=== PATIENT | male | born 1950 | race Caucasian/White ===

== ENCOUNTER 2021-12-08 10:46 | Inpatient (IN) ==
[2021-12-08 11:25] LABS: Basophils # 0.1 K/mcL (0.0-0.2); Basophils % 1.2 %; Eosinophils # 0.1 K/mcL (0.0-0.6); Eosinophils % 1.6 %; Hematocrit 46.1 % (37.5-50.1); Hemoglobin 15.5 g/dL (12.9-16.9); Immature Granulocytes % 0.3 % (0-4); Lymphocytes # 2.3 K/mcL (0.6-4.6); Lymphocytes % 33.8 %; Mean Corpuscular HGB Conc 33.6 g/dL (31.6-35.5); Mean Corpuscular Hemoglobin 31.5 pg (28.0-33.3); Mean Corpuscular Volume 93.7 fL (83.0-100.0); Mean Platelet Volume 10.3 fL (9.4-12.4); Monocytes # 0.7 K/mcL (0.0-1.3); Monocytes % 10.2 %; Neutrophils # 3.7 K/mcL (1.6-8.9); Platelet Count 167 K/mcL (140-400); Red Blood Count 4.92 M/mcL (4.19-5.50); Red Cell Distribution Width 12.3 % (11.5-14.5); Segmented Neutrophils % 52.9 %; White Blood Count 6.9 K/mcL (4.3-11.1)
[2021-12-08 11:50] LABS: BUN/Creatinine Ratio 13 (6-26); Blood Urea Nitrogen 15 mg/dL (8-23); Calcium 9.7 mg/dL (8.6-10.3); Carbon Dioxide 25 mEq/L (23-29); Chloride 104 mEq/L (98-107); Glucose 93 mg/dL (70-105); Osmolality,Calculated 287 (280-300); Potassium 4.6 mEq/L (3.5-5.1); Sodium 138 mEq/L (136-145); Troponin I < 0.03 ng/mL (< 0.04); eGFR For African Americans > 60 (> 60); eGFR For Non-African Americans > 60 (> 60)
[2021-12-08] MEDS ORDERED: Naloxone 0.4 MG/ML INJ IVP PRN (13:25)
[2021-12-08] MEDS ORDERED: Ondansetron 4 MG/2 ML VIAL IVP PRN (13:25)
[2021-12-08] MEDS ORDERED: Acetaminophen 325 MG TABLET PO PRN (13:25)
[2021-12-08] MEDS ORDERED: Perflutren Lipid Microsphere 1.3 ML in 0.9 % Sodium Chloride 8.7 ML IVP PRN (13:32)
[2021-12-08] MEDS: amLODIPine 5 MG TABLET PO SCH (16:55)
[2021-12-09 01:34] LABS: Basophils # 0.1 K/mcL (0.0-0.2); Basophils % 1.1 %; Eosinophils # 0.2 K/mcL (0.0-0.6); Eosinophils % 3.3 %; Hematocrit 41.7 % (37.5-50.1); Hemoglobin 14.5 g/dL (12.9-16.9); Immature Granulocytes % 0.3 % (0-4); Lymphocytes # 2.8 K/mcL (0.6-4.6); Mean Corpuscular HGB Conc 34.8 g/dL (31.6-35.5); Mean Corpuscular Hemoglobin 31.9 pg (28.0-33.3); Mean Corpuscular Volume 91.6 fL (83.0-100.0); Mean Platelet Volume 10.2 fL (9.4-12.4); Monocytes # 0.7 K/mcL (0.0-1.3); Monocytes % 10.1 %; Neutrophils # 3.3 K/mcL (1.6-8.9); Platelet Count 184 K/mcL (140-400); Red Blood Count 4.55 M/mcL (4.19-5.50); Red Cell Distribution Width 12.3 % (11.5-14.5); Segmented Neutrophils % 46.2 %; White Blood Count 7.2 K/mcL (4.3-11.1)
[2021-12-09 01:57] LABS: BUN/Creatinine Ratio 19 (6-26); Blood Urea Nitrogen 19 mg/dL (8-23); Calcium 9.2 mg/dL (8.6-10.3); Carbon Dioxide 25 mEq/L (23-29); Chloride 105 mEq/L (98-107); Glucose 98 mg/dL (70-105); Magnesium 2.3 mg/dL (1.6-2.6); Osmolality,Calculated 288 (280-300); Potassium 4.2 mEq/L (3.5-5.1); Sodium 138 mEq/L (136-145); Troponin I < 0.03 ng/mL (< 0.04); eGFR For African Americans > 60 (> 60); eGFR For Non-African Americans > 60 (> 60)
[2021-12-09] MEDS: *HR* Enoxaparin 40 MG/0.4 ML SYRINGE SQ SCH (07:14)
[2021-12-09 08:32] LABS: Chol/HDL Ratio 3.3 (0-4.9); Cholesterol 144 mg/dL (< 200); HDL Cholesterol 43 mg/dL (40-59); LDL Cholesterol,Calculated 59 mg/dL (< 100); Triglycerides 209 mg/dL (< 150)
[2021-12-09] MEDS: Aspirin Enteric Coated 81 MG Tablet PO SCH (09:04)
[2021-12-09] MEDS: Cholecalciferol (D-3) 1,000 UNIT (25MCG) TABLET PO SCH (09:05)
[2021-12-09] MEDS: amLODIPine 5 MG TABLET PO SCH (09:05)
[2021-12-09 11:27] LABS: Estimated Average Glucose 117 mg/dl; Hemoglobin A1C 5.7 %
[2021-12-09] MEDS ORDERED: *HR* Heparin 10,000 UNIT/10 ML VIAL ONE (16:51)
[2021-12-09] MEDS ORDERED: Heparin 1,000 UNITS/500 mL 500 ML ONE (16:51)
[2021-12-09] MEDS ORDERED: ISOVUE-370 200 ML INFUS..BTL ONE (16:51)
[2021-12-09] MEDS ORDERED: Nitroglycerin 1,000 MCG/5 ML VIAL IV ONE (16:52)
[2021-12-09] MEDS ORDERED: 0.9 % Sodium Chloride 2,000 ML ONE (16:52)
[2021-12-09] MEDS ORDERED: *HR* FentaNYL (PF) 100 MCG/2 ML VIAL ONE (17:11)
[2021-12-09] MEDS ORDERED: *HR* Midazolam HCl 2 MG/2 ML VIAL ONE (17:11)
[2021-12-10 01:36] LABS: Hematocrit 42.2 % (37.5-50.1); Hemoglobin 14.1 g/dL (12.9-16.9); Mean Corpuscular HGB Conc 33.4 g/dL (31.6-35.5); Mean Corpuscular Hemoglobin 30.8 pg (28.0-33.3); Mean Corpuscular Volume 92.1 fL (83.0-100.0); Mean Platelet Volume 10.4 fL (9.4-12.4); Platelet Count 174 K/mcL (140-400); Red Blood Count 4.58 M/mcL (4.19-5.50); Red Cell Distribution Width 12.4 % (11.5-14.5); White Blood Count 7.7 K/mcL (4.3-11.1)
[2021-12-10 01:57] LABS: BUN/Creatinine Ratio 18 (6-26); Blood Urea Nitrogen 21 mg/dL (8-23); Calcium 9.6 mg/dL (8.6-10.3); Carbon Dioxide 28 mEq/L (23-29); Chloride 103 mEq/L (98-107); Glucose 90 mg/dL (70-105); Magnesium 2.3 mg/dL (1.6-2.6); Osmolality,Calculated 291 (280-300); Potassium 4.2 mEq/L (3.5-5.1); Sodium 139 mEq/L (136-145); eGFR For African Americans > 60 (> 60); eGFR For Non-African Americans > 60 (> 60)
[2021-12-10] MEDS: *HR* Enoxaparin 40 MG/0.4 ML SYRINGE SQ SCH (06:13)
[2021-12-10] MEDS: amLODIPine 5 MG TABLET PO SCH (08:35)
[2021-12-10] MEDS: Aspirin Enteric Coated 81 MG Tablet PO SCH (08:35)
[2021-12-10] MEDS: Cholecalciferol (D-3) 1,000 UNIT (25MCG) TABLET PO SCH (08:35)
[2021-12-10] MEDS: Metoprolol XL (24 HR) Succ 25 MG TAB.ER.24H PO SCH (08:45)
[2021-12-10 14:22] LABS: Basophils # 0.1 K/mcL (0.0-0.2); Basophils % 0.9 %; Eosinophils # 0.1 K/mcL (0.0-0.6); Eosinophils % 1.7 %; Hematocrit 47.5 % (37.5-50.1); Hemoglobin 16.3 g/dL (12.9-16.9); Immature Granulocytes % 0.3 % (0-4); Lymphocytes # 2.9 K/mcL (0.6-4.6); Lymphocytes % 37.8 %; Mean Corpuscular HGB Conc 34.3 g/dL (31.6-35.5); Mean Corpuscular Hemoglobin 31.8 pg (28.0-33.3); Mean Corpuscular Volume 92.6 fL (83.0-100.0); Mean Platelet Volume 10.2 fL (9.4-12.4); Monocytes # 0.6 K/mcL (0.0-1.3); Monocytes % 7.9 %; Platelet Count 199 K/mcL (140-400); Red Blood Count 5.13 M/mcL (4.19-5.50); Red Cell Distribution Width 12.4 % (11.5-14.5); Segmented Neutrophils % 51.4 %; White Blood Count 7.7 K/mcL (4.3-11.1)
[2021-12-10 14:30] LABS: INR 1.1
[2021-12-10 14:32] LABS: Activated Partial Thrombo Time 33.7 Seconds (26.0-36.0)
[2021-12-10 14:40] LABS: BUN/Creatinine Ratio 16 (6-26); Blood Urea Nitrogen 20 mg/dL (8-23); Calcium 9.9 mg/dL (8.6-10.3); Carbon Dioxide 29 mEq/L (23-29); Chloride 101 mEq/L (98-107); Chol/HDL Ratio 3.8 (0-4.9); Cholesterol 158 mg/dL (< 200); Glucose 115 mg/dL (70-105); HDL Cholesterol 42 mg/dL (40-59); LDL Cholesterol,Calculated 38 mg/dL (< 100); Osmolality,Calculated 288 (280-300); Potassium 4.5 mEq/L (3.5-5.1); Sodium 137 mEq/L (136-145); Triglycerides 392 mg/dL (< 150); eGFR For African Americans > 60 (> 60); eGFR For Non-African Americans 56 (> 60)
[2021-12-10 14:56] LABS: Estimated Average Glucose 117 mg/dl; Hemoglobin A1C 5.7 %
[2021-12-11] MEDS: *HR* Enoxaparin 40 MG/0.4 ML SYRINGE SQ SCH (05:34)
[2021-12-11] MEDS: Aspirin Enteric Coated 81 MG Tablet PO SCH (08:32)
[2021-12-11] MEDS: amLODIPine 5 MG TABLET PO SCH (08:33)
[2021-12-11] MEDS: Metoprolol XL (24 HR) Succ 25 MG TAB.ER.24H PO SCH (08:33)
[2021-12-11] MEDS: Cholecalciferol (D-3) 1,000 UNIT (25MCG) TABLET PO SCH (08:33)
[2021-12-11] MEDS: Chlorhexidine Rinse 15 ML MOUTHWASH MM SCH (20:51)
[2021-12-12 03:25] LABS: INR 1.1; Mean Corpuscular HGB Conc 33.8 g/dL (31.6-35.5); Mean Corpuscular Hemoglobin 31.3 pg (28.0-33.3); Mean Corpuscular Volume 92.5 fL (83.0-100.0); Mean Platelet Volume 10.6 fL (9.4-12.4); Platelet Count 163 K/mcL (140-400); Prothrombin Time 12.2 Seconds (9.4-12.1); Red Blood Count 4.54 M/mcL (4.19-5.50); Red Cell Distribution Width 12.2 % (11.5-14.5); White Blood Count 8.2 K/mcL (4.3-11.1)
[2021-12-12 03:28] LABS: Activated Partial Thrombo Time 30.7 Seconds (26.0-36.0)
[2021-12-12 03:38] LABS: BUN/Creatinine Ratio 22 (6-26); Blood Urea Nitrogen 30 mg/dL (8-23); Calcium 9.3 mg/dL (8.6-10.3); Carbon Dioxide 26 mEq/L (23-29); Chloride 105 mEq/L (98-107); Glucose 95 mg/dL (70-105); Osmolality,Calculated 292 (280-300); Potassium 4.3 mEq/L (3.5-5.1); Sodium 138 mEq/L (136-145); eGFR For African Americans > 60 (> 60); eGFR For Non-African Americans 52 (> 60)
[2021-12-12 03:39] LABS: Hemoglobin 14.2 g/dL (12.9-16.9)
[2021-12-12] MEDS ORDERED: CeFAZolin Syr 2,000MG/20 ML 2,000 MG/20 ML SYRINGE IVPB ONE ×2 (05:00→11:57)
[2021-12-12] MEDS: Chlorhexidine Rinse 15 ML MOUTHWASH MM SCH ×3 (05:29→20:33)
[2021-12-12] MEDS ORDERED: DOBUTamine 1,000 MG/250 ML BAG ONE (05:51)
[2021-12-12] MEDS ORDERED: NiCARdipine 2.5 MG/10 ML Syringe IVPB ONE (05:51)
[2021-12-12] MEDS ORDERED: Papaverine 60 MG/2 ML VIAL IVP ONE (05:55)
[2021-12-12] MEDS ORDERED: *HR* FentaNYL (PF) 1,000 MCG/20 ML VIAL ONE (05:56)
[2021-12-12] MEDS ORDERED: *HR* Midazolam HCl 5 MG/5 ML VIAL IVP ONE (05:56)
[2021-12-12] MEDS ORDERED: Aspirin 81 MG TAB.CHEW PO ONE ×2 (06:00→16:00)
[2021-12-12] MEDS ORDERED: *HR* Norepinephrine 4 MG/4 ML VIAL IVC ONE (06:01)
[2021-12-12] MEDS ORDERED: *HR* Rocuronium Bromide 50 MG/5 ML VIAL ONE (06:01)
[2021-12-12] MEDS ORDERED: niCARdipine 20 MG/200 ML MLS IVC ONE (06:01)
[2021-12-12] MEDS ORDERED: *HR* Etomidate 20 MG/10 ML AMPUL IVP ONE (06:02)
[2021-12-12] MEDS ORDERED: Tranexamic Acid 1,000 MG/10 ML VIAL ONE (06:02)
[2021-12-12] MEDS ORDERED: Calcium Gluconate 1,000 MG/10 ML VIAL ONE (06:02)
[2021-12-12] MEDS ORDERED: Protamine Sulfate 250 MG/25 ML VIAL IVP ONE (06:04)
[2021-12-12] MEDS ORDERED: Heparin 15,000 UNIT in 0.9 % Sodium Chloride 500 ML IV ONE (07:00)
[2021-12-12] MEDS ORDERED: Norepinephrine 4 MG in 0.9 % Sodium Chloride 250 ML IVC PRN (07:00)
[2021-12-12] MEDS ORDERED: Buckersberg's Blood Cardioplegia PF ONE (07:00)
[2021-12-12] MEDS ORDERED: del Nido Cardioplegia Solution PF ONE ×2 (07:00)
[2021-12-12] MEDS ORDERED: *HR* Dextrose 50 % in Water (Syg) 50 ML SYRINGE IVP PRN (07:30)
[2021-12-12] MEDS ORDERED: Potassium Chloride 40 MEQ/200 ML BAG IVPB PRN (07:30)
[2021-12-12] MEDS ORDERED: Insulin Regular, Human 100 UNIT/ML IV PRN (07:30)
[2021-12-12] MEDS ORDERED: Calcium Gluconate 1gm/50mL 1 GM/50 ML BAG IVPB PRN (07:34)
[2021-12-12 09:14] LABS: ABG Base Excess -2 mEq/L (-2 to 3); ABG Chloride 106 mEq/L (98-107); ABG Glucose 94 mg/dL (60-95); ABG HCO3 23 mEq/L (21-27); ABG Ionized Calcium 1.19 mmol/L (1.15-1.35); ABG Oxygen Saturation 100 % (95-98); ABG PCO2 39 mmHg (35-45); ABG PH 7.38 pH Units (7.32-7.45); ABG PO2 412 mmHg (85-104); ABG TCO2 25 mEq/L (20-26)
[2021-12-12 09:36] LABS: ABG Base Excess -2 mEq/L (-2 to 3); ABG Chloride 106 mEq/L (98-107); ABG Glucose 120 mg/dL (60-95); ABG HCO3 23 mEq/L (21-27); ABG Ionized Calcium 1.17 mmol/L (1.15-1.35); ABG Oxygen Saturation 100 % (95-98); ABG PCO2 36 mmHg (35-45); ABG PO2 207 mmHg (85-104); ABG TCO2 24 mEq/L (20-26)
[2021-12-12 10:40] LABS: ABG Base Excess 2 mEq/L (-2 to 3); ABG Chloride 101 mEq/L (98-107); ABG Glucose 123 mg/dL (60-95); ABG HCO3 27 mEq/L (21-27); ABG Ionized Calcium 0.95 mmol/L (1.15-1.35); ABG Oxygen Saturation 100 % (95-98); ABG PCO2 40 mmHg (35-45); ABG PH 7.43 pH Units (7.32-7.45); ABG PO2 607 mmHg (85-104); ABG TCO2 28 mEq/L (20-26)
[2021-12-12 11:10] LABS: ABG Base Excess -1 mEq/L (-2 to 3); ABG Chloride 106 mEq/L (98-107); ABG Glucose 105 mg/dL (60-95); ABG HCO3 23 mEq/L (21-27); ABG Ionized Calcium 0.87 mmol/L (1.15-1.35); ABG Oxygen Saturation 100 % (95-98); ABG PCO2 36 mmHg (35-45); ABG PH 7.42 pH Units (7.32-7.45); ABG PO2 584 mmHg (85-104); ABG TCO2 24 mEq/L (20-26)
[2021-12-12] MEDS ORDERED: *HR* Phenylephrine 10 MG/ML VIAL IVC ONE (11:15)
[2021-12-12] MEDS ORDERED: *HR* Heparin 10,000 UNIT/10 ML VIAL IR ONE (11:15)
[2021-12-12] MEDS ORDERED: *HR* Magnesium Sulfate 2 GM/50 ML PIGGYBACK IVPB ONE (11:15)
[2021-12-12] MEDS ORDERED: Heparin 1,000 UNITS/500 mL IV.SOLN IR ONE (11:15)
[2021-12-12] MEDS ORDERED: Albumin Human 25% 25 GM/100 ML IV.SOLN IVPB ONE (11:15)
[2021-12-12] MEDS ORDERED: Lidocaine 2% Syringe 100 MG/5 ML IVP ONE (11:15)
[2021-12-12] MEDS ORDERED: Mannitol 25% vial 12.5 GM/50 ML VIAL IVPB ONE (11:15)
[2021-12-12] MEDS ORDERED: Tranexamic Acid 1,000 MG/100ML 1,000 MG/100 ML PIGGYBACK IVPB ONE (11:15)
[2021-12-12 11:55] LABS: ABG Base Excess -2 mEq/L (-2 to 3); ABG Chloride 105 mEq/L (98-107); ABG Glucose 100 mg/dL (60-95); ABG HCO3 23 mEq/L (21-27); ABG Oxygen Saturation 100 % (95-98); ABG PCO2 37 mmHg (35-45); ABG PO2 624 mmHg (85-104); ABG TCO2 24 mEq/L (20-26)
[2021-12-12] MEDS: amLODIPine 5 MG TABLET PO SCH (11:58)
[2021-12-12] MEDS: Cholecalciferol (D-3) 1,000 UNIT (25MCG) TABLET PO SCH (11:58)
[2021-12-12] MEDS: *HR* Enoxaparin 40 MG/0.4 ML SYRINGE SQ SCH (11:59)
[2021-12-12 13:58] LABS: ABG Base Excess -2 mEq/L (-2 to 3); ABG HCO3 23 mEq/L (21-27); ABG Oxygen Saturation 100 % (95-98); ABG PCO2 36 mmHg (35-45); ABG PH 7.41 pH Units (7.32-7.45); ABG PO2 200 mmHg (85-104); ABG TCO2 24 mEq/L (20-26); Blood Gas Modality ASSIST CONTROL; Blood Gas VT 450 cc
[2021-12-12 13:58] LABS: Basophils # 0.1 K/mcL (0.0-0.2); Basophils % 0.5 %; Eosinophils # 0.1 K/mcL (0.0-0.6); Eosinophils % 0.7 %; Hematocrit 30.1 % (37.5-50.1); Immature Granulocytes % 0.8 % (0-4); Lymphocytes % 20.2 %; Mean Corpuscular HGB Conc 34.9 g/dL (31.6-35.5); Mean Corpuscular Hemoglobin 31.8 pg (28.0-33.3); Mean Corpuscular Volume 91.2 fL (83.0-100.0); Mean Platelet Volume 10.1 fL (9.4-12.4); Monocytes # 1.3 K/mcL (0.0-1.3); Platelet Count 115 K/mcL (140-400); Red Cell Distribution Width 12.2 % (11.5-14.5); Segmented Neutrophils % 68.8 %
[2021-12-12] MEDS: Albumin Human 5% 12.5 GM/250 ML IV.SOLN IVPB PRN ×3 (14:00→17:36)
[2021-12-12 14:06] LABS: INR 1.3
[2021-12-12 14:11] LABS: Hemoglobin 10.5 g/dL (12.9-16.9); Prothrombin Time 14.3 Seconds (9.4-12.1); White Blood Count 14.6 K/mcL (4.3-11.1)
[2021-12-12] MEDS: *HR* OxyCODONE/APAP 5/325 TABLET PO PRN ×2 (14:21→18:08)
[2021-12-12] MEDS: *HR* FentaNYL (PF) 100 MCG/2 ML VIAL IVP PRN (14:21)
[2021-12-12 14:37] LABS: BUN/Creatinine Ratio 20 (6-26); Blood Urea Nitrogen 21 mg/dL (8-23); Calcium 7.5 mg/dL (8.6-10.3); Carbon Dioxide 22 mEq/L (23-29); Chloride 109 mEq/L (98-107); Glucose 145 mg/dL (70-105); Osmolality,Calculated 292 (280-300); Potassium 4.9 mEq/L (3.5-5.1); Sodium 138 mEq/L (136-145); eGFR For African Americans > 60 (> 60); eGFR For Non-African Americans > 60 (> 60)
[2021-12-12] MEDS: Norepinephrine 4 MG/254 ML IV.SOLN IVC SCH (15:12)
[2021-12-12] MEDS: Nitroprusside 50 MG in D5% in Water 250 ML IVC SCH (15:12)
[2021-12-12] MEDS: DOBUTamine 1,000 MG/250 ML BAG IVC SCH (15:12)
[2021-12-12 16:16] LABS: ABG Base Excess -4 mEq/L (-2 to 3); ABG HCO3 22 mEq/L (21-27); ABG Oxygen Saturation 97 % (95-98); ABG PCO2 43 mmHg (35-45); ABG PH 7.32 pH Units (7.32-7.45); ABG PO2 103 mmHg (85-104); ABG TCO2 24 mEq/L (20-26); Blood Gas Modality ASSIST CONTROL; Blood Gas VT 450 cc
[2021-12-12] MEDS: Pantoprazole 40 MG VIAL IVP SCH (16:26)
[2021-12-12] MEDS: CeFAZolin 2 GM/120 ML BAG IVPB SCH (16:27)
[2021-12-12] MEDS: Calcium Gluconate 1gm/50mL 1 GM/50 ML BAG IVPB PRN ×3 (18:06→20:00)
[2021-12-12 20:54] LABS: ABG Base Excess -2 mEq/L (-2 to 3); ABG HCO3 24 mEq/L (21-27); ABG Oxygen Saturation 95 % (95-98); ABG PCO2 41 mmHg (35-45); ABG PH 7.37 pH Units (7.32-7.45); ABG PO2 81 mmHg (85-104); ABG TCO2 25 mEq/L (20-26); Blood Gas Modality 2LPM
[2021-12-13] MEDS: CeFAZolin 2 GM/120 ML BAG IVPB SCH ×3 (00:29→16:42)
[2021-12-13] MEDS: *HR* FentaNYL (PF) 100 MCG/2 ML VIAL IVP PRN (02:15)
[2021-12-13] MEDS: Norepinephrine 4 MG/254 ML IV.SOLN IVC SCH (03:08)
[2021-12-13] MEDS: *HR* OxyCODONE/APAP 5/325 TABLET PO PRN ×3 (03:16→12:40)
[2021-12-13 04:50] LABS: Basophils % 0.3 %; Hematocrit 23.4 % (37.5-50.1); Immature Granulocytes % 0.4 % (0-4); Lymphocytes # 1.5 K/mcL (0.6-4.6); Lymphocytes % 10.9 %; Mean Corpuscular HGB Conc 34.2 g/dL (31.6-35.5); Mean Corpuscular Hemoglobin 31.7 pg (28.0-33.3); Mean Corpuscular Volume 92.9 fL (83.0-100.0); Mean Platelet Volume 10.9 fL (9.4-12.4); Monocytes % 11.2 %; Neutrophils # 10.7 K/mcL (1.6-8.9); Platelet Count 110 K/mcL (140-400); Red Blood Count 2.52 M/mcL (4.19-5.50); Red Cell Distribution Width 12.7 % (11.5-14.5); Segmented Neutrophils % 77.2 %; White Blood Count 13.8 K/mcL (4.3-11.1)
[2021-12-13 04:51] LABS: Monocytes # 1.6 K/mcL (0.0-1.3)
[2021-12-13 04:57] LABS: INR 1.4; Prothrombin Time 15.9 Seconds (9.4-12.1)
[2021-12-13 04:59] LABS: Activated Partial Thrombo Time 26.6 Seconds (26.0-36.0)
[2021-12-13 05:06] LABS: BUN/Creatinine Ratio 16 (6-26); Blood Urea Nitrogen 18 mg/dL (8-23); Calcium 8.1 mg/dL (8.6-10.3); Carbon Dioxide 22 mEq/L (23-29); Chloride 108 mEq/L (98-107); Glucose 147 mg/dL (70-105); Magnesium 2.3 mg/dL (1.6-2.6); Osmolality,Calculated 291 (280-300); Potassium 4.2 mEq/L (3.5-5.1); Sodium 138 mEq/L (136-145); eGFR For African Americans > 60 (> 60); eGFR For Non-African Americans > 60 (> 60)
[2021-12-13] MEDS: *HR* Enoxaparin 40 MG/0.4 ML SYRINGE SQ SCH (06:00)
[2021-12-13] MEDS: Chlorhexidine Rinse 15 ML MOUTHWASH MM SCH ×2 (08:16→20:18)
[2021-12-13] MEDS: Pantoprazole 40 MG VIAL IVP SCH (08:16)
[2021-12-13] MEDS: Cholecalciferol (D-3) 1,000 UNIT (25MCG) TABLET PO SCH (08:17)
[2021-12-13] MEDS ORDERED: Aspirin 81 MG TAB.CHEW PO SCH (09:00)
[2021-12-13] MEDS ORDERED: D5% in Water 1,000 ML IVC PRN (15:15)
[2021-12-13] MEDS ORDERED: *HR* Dextrose 50 % in Water (Syg) 50 ML SYRINGE IVP PRN (15:15)
[2021-12-13] MEDS ORDERED: Ondansetron 4 MG/2 ML VIAL IVP PRN (15:15)
[2021-12-13] MEDS ORDERED: Dextrose 4 GM Chewable Tablets PO PRN ×2 (15:15)
[2021-12-13] MEDS ORDERED: *HR* OxyCODONE/APAP 5/325 TABLET PO PRN (15:15)
[2021-12-13] MEDS ORDERED: Naloxone 0.4 MG/ML INJ IVP PRN (15:15)
[2021-12-13] MEDS: Insulin LISPRO 300 UNITS/3 ML VIAL SUBQ SCH (16:42)
[2021-12-13] MEDS: Metoprolol XL (24 HR) Succ 25 MG TAB.ER.24H PO SCH (18:34)
[2021-12-13] MEDS: Nitroprusside 50 MG in D5% in Water 250 ML IVC SCH (18:34)
[2021-12-13] MEDS: DOBUTamine 1,000 MG/250 ML BAG IVC SCH (18:34)
[2021-12-13] MEDS: amLODIPine 5 MG TABLET PO SCH (18:34)
[2021-12-13] MEDS ORDERED: Insulin LISPRO 300 UNITS/3 ML VIAL SUBQ SCH (21:00)
[2021-12-14] MEDS: CeFAZolin 2 GM/120 ML BAG IVPB SCH ×2 (01:04→09:10)
[2021-12-14] MEDS: Acetaminophen 325 MG TABLET PO PRN ×3 (04:13→22:55)
[2021-12-14 04:47] LABS: Basophils % 0.2 %; Immature Granulocytes % 0.7 % (0-4); Mean Platelet Volume 11.3 fL (9.4-12.4); Red Blood Count 2.21 M/mcL (4.19-5.50)
[2021-12-14 04:49] LABS: Eosinophils % 0.1 %; Immature Platelets 9.2 % (1.1-6.1); Lymphocytes # 1.8 K/mcL (0.6-4.6); Lymphocytes % 16.9 %; Mean Corpuscular HGB Conc 33.3 g/dL (31.6-35.5); Mean Corpuscular Hemoglobin 31.7 pg (28.0-33.3); Monocytes # 1.2 K/mcL (0.0-1.3); Monocytes % 11.6 %; Neutrophils # 7.5 K/mcL (1.6-8.9); Red Cell Distribution Width 12.9 % (11.5-14.5); Segmented Neutrophils % 70.5 %; White Blood Count 10.7 K/mcL (4.3-11.1)
[2021-12-14 04:58] LABS: BUN/Creatinine Ratio 13 (6-26); Blood Urea Nitrogen 16 mg/dL (8-23); Calcium 8.1 mg/dL (8.6-10.3); Carbon Dioxide 26 mEq/L (23-29); Chloride 102 mEq/L (98-107); Glucose 135 mg/dL (70-105); Magnesium 2.3 mg/dL (1.6-2.6); Osmolality,Calculated 279 (280-300); Sodium 133 mEq/L (136-145); eGFR For African Americans > 60 (> 60); eGFR For Non-African Americans > 60 (> 60)
[2021-12-14 05:14] LABS: Platelet Count 91 K/mcL (140-400)
[2021-12-14 05:15] LABS: Platelet Estimate Slight Decrease (Normal)
[2021-12-14 06:37] LABS: ABG Base Excess -4 mEq/L (-2 to 3); ABG Chloride 109 mEq/L (98-107); ABG Glucose 105 mg/dL (60-95); ABG HCO3 21 mEq/L (21-27); ABG Ionized Calcium 1.05 mmol/L (1.15-1.35); ABG Oxygen Saturation 99 % (95-98); ABG PCO2 34 mmHg (35-45); ABG PH 7.39 pH Units (7.32-7.45); ABG PO2 149 mmHg (85-104); ABG TCO2 22 mEq/L (20-26)
[2021-12-14] MEDS: *HR* Enoxaparin 40 MG/0.4 ML SYRINGE SQ SCH (08:25)
[2021-12-14] MEDS: Insulin LISPRO 300 UNITS/3 ML VIAL SUBQ SCH (08:37)
[2021-12-14] MEDS: Metoprolol XL (24 HR) Succ 25 MG TAB.ER.24H PO SCH (08:39)
[2021-12-14] MEDS: amLODIPine 5 MG TABLET PO SCH (08:40)
[2021-12-14] MEDS: Cholecalciferol (D-3) 1,000 UNIT (25MCG) TABLET PO SCH (08:41)
[2021-12-14] MEDS: Aspirin 81 MG TAB.CHEW PO SCH (08:42)
[2021-12-14] MEDS: Chlorhexidine Rinse 15 ML MOUTHWASH MM SCH ×2 (08:42→21:09)
[2021-12-14] MEDS: Furosemide 40 MG/4 ML VIAL IVP SCH ×2 (08:44→21:09)
[2021-12-14] MEDS: Pantoprazole 40 MG VIAL IVP SCH (08:45)
[2021-12-15 03:04] LABS: Basophils % 0.2 %; Eosinophils % 0.1 %; Hematocrit 21.1 % (37.5-50.1); Immature Granulocytes % 0.8 % (0-4); Lymphocytes # 1.9 K/mcL (0.6-4.6); Lymphocytes % 15.8 %; Mean Corpuscular HGB Conc 33.2 g/dL (31.6-35.5); Mean Corpuscular Hemoglobin 30.8 pg (28.0-33.3); Mean Platelet Volume 11.8 fL (9.4-12.4); Monocytes # 1.3 K/mcL (0.0-1.3); Monocytes % 10.7 %; Neutrophils # 8.7 K/mcL (1.6-8.9); Nucleated Red Blood Cells 0.3 /100 WBC (0); Platelet Count 121 K/mcL (140-400); Red Blood Count 2.27 M/mcL (4.19-5.50); Red Cell Distribution Width 12.8 % (11.5-14.5); Segmented Neutrophils % 72.4 %
[2021-12-15 03:33] LABS: BUN/Creatinine Ratio 17 (6-26); Blood Urea Nitrogen 19 mg/dL (8-23); Calcium 8.5 mg/dL (8.6-10.3); Carbon Dioxide 26 mEq/L (23-29); Chloride 102 mEq/L (98-107); Glucose 123 mg/dL (70-105); Magnesium 2.2 mg/dL (1.6-2.6); Osmolality,Calculated 286 (280-300); Potassium 3.7 mEq/L (3.5-5.1); Sodium 136 mEq/L (136-145); eGFR For African Americans > 60 (> 60); eGFR For Non-African Americans > 60 (> 60)
[2021-12-15] MEDS: Furosemide 40 MG/4 ML VIAL IVP SCH ×2 (08:44→20:48)
[2021-12-15] MEDS: Pantoprazole 40 MG VIAL IVP SCH (08:44)
[2021-12-15] MEDS: Chlorhexidine Rinse 15 ML MOUTHWASH MM SCH ×2 (08:44→20:47)
[2021-12-15] MEDS: Cholecalciferol (D-3) 1,000 UNIT (25MCG) TABLET PO SCH (08:45)
[2021-12-15] MEDS: Aspirin 81 MG TAB.CHEW PO SCH (08:45)
[2021-12-15] MEDS: Metoprolol XL (24 HR) Succ 25 MG TAB.ER.24H PO SCH (08:46)
[2021-12-15] MEDS: amLODIPine 5 MG TABLET PO SCH (08:46)
[2021-12-16 01:41] LABS: Basophils % 0.4 %; Eosinophils # 0.1 K/mcL (0.0-0.6); Eosinophils % 0.6 %; Hematocrit 20.9 % (37.5-50.1); Hemoglobin 6.8 g/dL (12.9-16.9); Lymphocytes # 2.7 K/mcL (0.6-4.6); Lymphocytes % 23.8 %; Mean Corpuscular HGB Conc 32.5 g/dL (31.6-35.5); Mean Corpuscular Hemoglobin 30.8 pg (28.0-33.3); Mean Corpuscular Volume 94.6 fL (83.0-100.0); Mean Platelet Volume 11.6 fL (9.4-12.4); Monocytes # 1.3 K/mcL (0.0-1.3); Monocytes % 11.6 %; Neutrophils # 7.1 K/mcL (1.6-8.9); Nucleated Red Blood Cells 1.3 /100 WBC (0); Platelet Count 152 K/mcL (140-400); Red Blood Count 2.21 M/mcL (4.19-5.50); Red Cell Distribution Width 13.1 % (11.5-14.5); Segmented Neutrophils % 62.6 %; White Blood Count 11.3 K/mcL (4.3-11.1)
[2021-12-16 02:05] LABS: BUN/Creatinine Ratio 21 (6-26); Blood Urea Nitrogen 22 mg/dL (8-23); Calcium 8.1 mg/dL (8.6-10.3); Carbon Dioxide 27 mEq/L (23-29); Chloride 103 mEq/L (98-107); Glucose 107 mg/dL (70-105); Magnesium 2.3 mg/dL (1.6-2.6); Osmolality,Calculated 290 (280-300); Potassium 3.4 mEq/L (3.5-5.1); Sodium 138 mEq/L (136-145); eGFR For African Americans > 60 (> 60); eGFR For Non-African Americans > 60 (> 60)
[2021-12-16] MEDS ORDERED: 0.9 % Sodium Chloride 250 ML ONE (06:02)
[2021-12-16] MEDS: Aspirin 81 MG TAB.CHEW PO SCH (07:30)
[2021-12-16] MEDS: Cholecalciferol (D-3) 1,000 UNIT (25MCG) TABLET PO SCH (07:30)
[2021-12-16] MEDS: Chlorhexidine Rinse 15 ML MOUTHWASH MM SCH (07:31)
[2021-12-16] MEDS: *HR* Enoxaparin 40 MG/0.4 ML SYRINGE SQ SCH (07:31)
[2021-12-16] MEDS: amLODIPine 5 MG TABLET PO SCH (07:31)
[2021-12-16] MEDS: Pantoprazole 40 MG VIAL IVP SCH (08:55)
[2021-12-16] MEDS: Furosemide 40 MG/4 ML VIAL IVP SCH (08:55)
[2021-12-16] MEDS ORDERED: Potassium Chloride Elixir 20 MEQ/15 ML UDC PO ONE (09:53)
[2021-12-16 10:52] VITALS: TEMP 99.1; O2SAT 100
[2021-12-16 13:00] VITALS: BP 100/68; PULSE 81
== END 2021-12-16 14:52 | disposition home health service (06) | DRG 234 ==
LOC: EMEROOARM 10:46 → 3BNU 10:46 → SUATTDRO 13:18 → 3BNU 14:22 → SUATTDRO 12-10 16:22 → ICNU 12-12 10:25 → 2NNU 12-13 16:28
PROVIDERS: ADMIT Pharmacist; ATTEND Nurse Practitioner